=== PATIENT | male | born 1955 | race Caucasian/White ===

== ENCOUNTER 2024-09-07 17:27 | Emergency (ER) | payer MEDICARE ==
[2024-09-07 18:12] LABS: #Basophils 0.03 10x3/uL (0.0-0.2); %Basophils 0.3 % (0.0-1.0); %Eosinophils 0.3 % (0.0-10.0); %Lymphocytes 8.5 % (21.0-51.0); %Monocytes 8.4 % (0.0-10.0); %Neutrophils 82.1 % (42.0-75.0); Hematocrit 45.3 % (42.0-52.0); Hemoglobin 15.9 g/dL (14.0-18.0); Mean Corpuscular HGB CONC 35.1 g/dL (32.0-36.0); Mean Corpuscular Hemoglobin 32.9 pg (27.0-31.0); Mean Corpuscular Volume 93.8 fL (78.0-98.0); Mean Platelet Volume 10.3 fL (7.4-10.4); Platelet Count 138 10x3/uL (130-400); RBC Distribution Width 12.9 % (11.5-14.5); Red Blood Cell (RBC) Count 4.83 mill/uL (4.70-6.10)
[2024-09-07 18:27] LABS: CRP,High Sensitivity (Inhouse) 8.05 mg/dL (< or = 0.5)
[2024-09-07 18:28] LABS: ALT (SGPT) 16 U/L (8-55); AST (SGOT) 20 U/L (5-34); Albumin 4.1 g/dL (3.4-4.8); Alkaline Phosphatase 91 U/L (40-110); Anion Gap 15 mmol/L (10-20); BUN (Urea Nitrogen) 10 mg/dL (8.4-25.7); Bilirubin, Total 2.7 mg/dL (0.2-1.2); Calc. Creatinine Clearance 0 mL/min (70-130); Calcium 9.8 mg/dL (7.8-10.44); Carbon Dioxide 26 mmol/L (23-31); Chloride 100 mmol/L (98-107); Estimated GFR 72; Globulin 3.6 g/dL (2.4-3.5); Glucose 139 mg/dL (80-115); Potassium 4.5 mmol/L (3.5-5.1); Protein, Total 7.7 g/dL (5.8-8.1); Sodium 136 mmol/L (136-145)
[2024-09-07] MEDS ORDERED: Ibuprofen 200 MG TAB ONE ×2 (18:43→18:49)
[2024-09-07] MEDS ORDERED: predniSONE 20 MG TAB ONE (19:17)
== END 2024-09-07 19:44 | disposition home or self-care (01) ==
LOC: ERS 17:27
DX: L03.113 Cellulitis of right upper limb (principal); M70.21 Olecranon bursitis, right elbow; J44.9 Chronic obstructive pulmonary disease, unspecified; E11.9 Type 2 diabetes mellitus without complications; F17.210 Nicotine dependence, cigarettes, uncomplicated
CPT/HCPCS: 36415; 80053; 85025; 86141; 99283; J7512